=== PATIENT | male | born 1945 | race Caucasian/White ===

== ENCOUNTER 2020-05-23 10:49 | Inpatient (IN) ==
[~2020-05-23 10:49] MED LIST: ASPIRIN 325 MG TABLET PO ONE; DIAZEPAM 5 MG TABLET PO ONE; MAGNESIUM SULF RIDER 2 GM in PREMIX 1 EACH IV PRN; POTASSIUM CHLORIDE RIDER 10 MEQ in PREMIX 1 EACH IV PRN; diphenhydrAMINE CAP 25 MG CAPSULE PO ONE
[2020-05-23] MEDS ORDERED: ASPIRIN 325 MG TABLET ONE (11:48)
[2020-05-23] MEDS ORDERED: diphenhydrAMINE CAP 25 MG CAPSULE ONE (11:48)
[2020-05-23] MEDS ORDERED: DIAZEPAM 5 MG TABLET ONE (11:48)
[2020-05-23] MEDS: SODIUM CHLORIDE 0.9% 1,000 ML IV SCH (11:51)
[2020-05-23] MEDS ORDERED: HEPARIN/NACL 0.9% 2 UNITS/ML 1,000 ML IV ONE (13:44)
[2020-05-23] MEDS ORDERED: LIDOCAINE 1% 20 ML VIAL ONE (13:44)
[2020-05-23] MEDS ORDERED: DIPHENHYDRAMINE ACETAMINOPHEN PO PRN (13:56)
[2020-05-23] MEDS ORDERED: ZALEPLON 5 MG CAPSULE PO PRN (13:56)
[2020-05-23] MEDS ORDERED: MIDAZOLAM 2 MG/2 ML VIAL ONE (13:59)
[2020-05-23] MEDS ORDERED: fentaNYL 100 MCG/2 ML VIAL ONE (13:59)
[2020-05-23] MEDS ORDERED: TESTOSTERONE CYPIONATE 200 MG/ML VIAL IM SCH (14:00)
[2020-05-23] MEDS ORDERED: METOPROLOL TARTRATE 5 MG/5 ML VIAL IV ONE (14:24)
[2020-05-23] MEDS ORDERED: hydrALAZINE 20 MG/1 ML VIAL ONE (14:29)
[2020-05-23] MEDS ORDERED: MORPHINE 4 MG/1 ML VIAL IV PRN (15:17)
[2020-05-23] MEDS ORDERED: ONDANSETRON 4 MG/2 ML VIAL IV PRN (15:17)
[2020-05-23] MEDS ORDERED: ACETAMINOPHEN/CODEINE 300-30 MG TABLET PO PRN (15:17)
[2020-05-23] MEDS ORDERED: MAGNESIUM HYDROXIDE SUSP 30 ML UDCUP PO PRN (15:31)
[2020-05-23] MEDS: NITROGLYCERIN SL 0.4 MG TABLET SL PRN ×2 (16:31→16:39)
[2020-05-23] MEDS ORDERED: METOPROLOL TARTRATE 5 MG/5 ML VIAL IV PRN (16:41)
[2020-05-23] MEDS: NITROGLYCERIN 2% OINT 1 INCH/GM PACK TOP SCH ×2 (16:46→17:59)
[2020-05-23] MEDS: LOSARTAN 50 MG TABLET PO SCH (17:04)
[2020-05-23 19:00] LABS: Calcium 9.2 MG/DL (8.5-10.1); Osmolality,Calculated 274.8 MOS/KG (273-304)
[2020-05-23 19:04] LABS: Troponin I < 0.015 NG/ML (0.00-0.045)
[2020-05-23] MEDS ORDERED: ATORVASTATIN 10 MG TABLET PO SCH (21:00)
[2020-05-23] MEDS: ASPIRIN EC 81 MG TABLET PO SCH (21:40)
[2020-05-23] MEDS: CHOLECALCIFEROL 5,000 UNIT TABLET PO SCH (21:40)
[2020-05-23] MEDS: MONTELUKAST 10 MG TABLET PO SCH (21:40)
[2020-05-23] MEDS: MELATONIN 3 MG TABLET PO PRN (21:43)
[2020-05-24] MEDS: SODIUM CHLORIDE 0.9% 1,000 ML IV SCH ×2 (00:02→19:01)
[2020-05-24] MEDS: NITROGLYCERIN 2% OINT 1 INCH/GM PACK TOP SCH ×2 (05:47)
[2020-05-24 06:20] LABS: Basophils % 0.3 % (0.0-0.8); Eosinophils # 0.1 10*3/uL (0.0-0.87); Eosinophils % 1.4 % (0.00-10.9); Hemoglobin 14.8 GM/DL (14.0-18.0); Immature Granulocytes % 0.3 %; Immature Granulocytes Absolute 0.02 #; Lymphocytes # 1.8 10*3/uL (1.4-4.0); Lymphocytes % 24.4 % (21.2-54.2); Mean Corpuscular HGB Conc 32.9 GM/DL (32-36); Mean Corpuscular Volume 88.4 FL (87-102); Mean Platelet Volume 10.6 FL (9.6-12.0); Neutrophils % 62.6 % (38.7-73.9); Platelet Count 202 T/CUMM (130-400); Red Blood Count 5.09 MC/CUMM (3.8-5.5); Red Cell Distribution Width 13.5 % (9.3-17.3); White Blood Count 7.3 T/CUMM (4-12)
[2020-05-24 06:49] LABS: Calcium 8.7 MG/DL (8.5-10.1); Osmolality,Calculated 281.4 MOS/KG (273-304)
[2020-05-24 06:51] LABS: Risk Ratio 4.14; VLDL CHOLESTEROL 34.8 MG/DL
[2020-05-24] MEDS: ISOSORBIDE MONONITRATE 30 MG TABLET PO SCH (08:43)
[2020-05-24] MEDS ORDERED: DILTIAZEM CD 120 MG CAPSULE PO SCH (09:00)
[2020-05-24] MEDS ORDERED: CLOPIDOGREL 75 MG TABLET PO SCH (09:00)
[2020-05-24] MEDS ORDERED: ENOXAPARIN 40 MG/0.4 ML SYRINGE SUBCUT SCH (09:00)
[2020-05-24] MEDS ORDERED: PANTOPRAZOLE 20 MG TABLET PO SCH (09:00)
[2020-05-24] MEDS ORDERED: ENOXAPARIN 60 MG/0.6 ML SYRINGE SUBCUT ONE (09:26)
[2020-05-24] MEDS ORDERED: GLUCAGON 1 MG VIAL IM PRN (09:56)
[2020-05-24] MEDS ORDERED: DEXTROSE 50% 25 GM/50 ML VIAL IV PRN (09:56)
[2020-05-24] MEDS: ASCORBIC ACID 500 MG TABLET PO SCH ×2 (10:37→21:02)
[2020-05-24] MEDS: LOSARTAN 50 MG TABLET PO SCH (21:02)
[2020-05-24] MEDS: CHOLECALCIFEROL 5,000 UNIT TABLET PO SCH (21:02)
[2020-05-24] MEDS: diphenhydrAMINE CAP 25 MG CAPSULE PO PRN (21:02)
[2020-05-24] MEDS: ASPIRIN EC 81 MG TABLET PO SCH (21:02)
[2020-05-24] MEDS: METOPROLOL TARTRATE 25 MG TABLET PO SCH (21:02)
[2020-05-24] MEDS: ACETAMINOPHEN 325 MG TABLET PO PRN (21:02)
[2020-05-24] MEDS: MONTELUKAST 10 MG TABLET PO SCH (21:02)
[2020-05-24] MEDS: MELATONIN 3 MG TABLET PO PRN (21:03)
[2020-05-24] MEDS: ROSUVASTATIN 20 MG TABLET PO SCH (21:03)
[2020-05-24] MEDS: SELENIUM 200 MCG TABLET PO SCH (21:03)
[2020-05-24] MEDS: PANTOPRAZOLE 20 MG TABLET PO SCH (21:03)
[2020-05-24] MEDS: ENOXAPARIN 100 MG/ML SYRINGE SUBCUT SCH (21:03)
[2020-05-25 06:50] LABS: Basophils % 0.6 % (0.0-0.8); Eosinophils # 0.2 10*3/uL (0.0-0.87); Eosinophils % 2.7 % (0.00-10.9); Hematocrit 46.3 VOL% (42.0-52.0); Hemoglobin 15.4 GM/DL (14.0-18.0); Immature Granulocytes % 0.3 %; Immature Granulocytes Absolute 0.02 #; Lymphocytes # 2.2 10*3/uL (1.4-4.0); Lymphocytes % 31.3 % (21.2-54.2); Mean Corpuscular HGB Conc 33.3 GM/DL (32-36); Mean Corpuscular Volume 87.7 FL (87-102); Mean Platelet Volume 10.6 FL (9.6-12.0); Monocytes % 11.4 % (1.7-12.7); Neutrophils % 53.7 % (38.7-73.9); Platelet Count 196 T/CUMM (130-400); Red Blood Count 5.28 MC/CUMM (3.8-5.5); Red Cell Distribution Width 13.4 % (9.3-17.3)
[2020-05-25 07:09] LABS: Calcium 8.8 MG/DL (8.5-10.1); Osmolality,Calculated 279.5 MOS/KG (273-304)
[2020-05-25 07:22] LABS: Calcium 9.1 MG/DL (8.5-10.1); Osmolality,Calculated 279.5 MOS/KG (273-304)
[2020-05-25] MEDS: ISOSORBIDE MONONITRATE 30 MG TABLET PO SCH (08:59)
[2020-05-25] MEDS: ENOXAPARIN 100 MG/ML SYRINGE SUBCUT SCH ×2 (08:59→22:00)
[2020-05-25] MEDS: METOPROLOL TARTRATE 25 MG TABLET PO SCH ×2 (09:00→21:57)
[2020-05-25] MEDS: ASCORBIC ACID 500 MG TABLET PO SCH ×2 (09:00→21:59)
[2020-05-25] MEDS: PANTOPRAZOLE 20 MG TABLET PO SCH ×2 (09:00→21:58)
[2020-05-25] MEDS: ASPIRIN EC 81 MG TABLET PO SCH (21:55)
[2020-05-25] MEDS: LOSARTAN 50 MG TABLET PO SCH (21:56)
[2020-05-25] MEDS: ROSUVASTATIN 20 MG TABLET PO SCH (21:57)
[2020-05-25] MEDS: SELENIUM 200 MCG TABLET PO SCH (21:58)
[2020-05-25] MEDS: MONTELUKAST 10 MG TABLET PO SCH (21:58)
[2020-05-25] MEDS: CHOLECALCIFEROL 5,000 UNIT TABLET PO SCH (21:59)
[2020-05-25] MEDS: diphenhydrAMINE CAP 25 MG CAPSULE PO PRN (22:28)
[2020-05-25] MEDS: MELATONIN 3 MG TABLET PO PRN (22:28)
[2020-05-25] MEDS: ACETAMINOPHEN 325 MG TABLET PO PRN (22:29)
[2020-05-26 05:35] LABS: Basophils # 0.1 10*3/uL (0.0-0.2); Basophils % 0.7 % (0.0-0.8); Eosinophils # 0.2 10*3/uL (0.0-0.87); Eosinophils % 2.5 % (0.00-10.9); Hemoglobin 15.3 GM/DL (14.0-18.0); Immature Granulocytes % 0.1 %; Immature Granulocytes Absolute 0.01 #; Lymphocytes # 2.3 10*3/uL (1.4-4.0); Lymphocytes % 30.4 % (21.2-54.2); Mean Corpuscular HGB Conc 33.3 GM/DL (32-36); Mean Platelet Volume 10.3 FL (9.6-12.0); Monocytes % 10.8 % (1.7-12.7); Neutrophils % 55.5 % (38.7-73.9); Platelet Count 205 T/CUMM (130-400); Red Blood Count 5.23 MC/CUMM (3.8-5.5); Red Cell Distribution Width 13.3 % (9.3-17.3); White Blood Count 7.5 T/CUMM (4-12)
[2020-05-26 07:03] LABS: Albumin 3.2 G/DL (3.4-5.0); Bilirubin,Total 1.8 MG/DL (0.2-1.0); Calcium 9.1 MG/DL (8.5-10.1); Osmolality,Calculated 279.5 MOS/KG (273-304); Total Protein 6.7 G/DL (6.4-8.3)
[2020-05-26] MEDS: ISOSORBIDE MONONITRATE 30 MG TABLET PO SCH (08:35)
[2020-05-26] MEDS: ASCORBIC ACID 500 MG TABLET PO SCH ×2 (08:35→21:33)
[2020-05-26] MEDS: PANTOPRAZOLE 20 MG TABLET PO SCH ×2 (08:35→21:34)
[2020-05-26] MEDS: ENOXAPARIN 100 MG/ML SYRINGE SUBCUT SCH (08:35)
[2020-05-26] MEDS: METOPROLOL TARTRATE 25 MG TABLET PO SCH ×2 (08:35→21:33)
[2020-05-26] MEDS: CHLORHEXIDINE 0.12% ORAL RINSE 60 ML BOTTLE SWISH/SPIT SCH ×2 (08:35→21:35)
[2020-05-26] MEDS: CHLORHEXIDINE 4% SOLN 118 ML BOTTLE TOP SCH ×2 (10:00→15:39)
[2020-05-26 11:36] LABS: ABG Base Excess -1.3 MMOL/L (-2.5-2.5); ABG HCO3 23.3 MMOL/L (20-26); ABG Oxygen Saturation 97.3 % (95-100); ABG PCO2 35.9 MM HG (35-48); ABG PH 7.408 (7.35-7.45); ABG PO2 97.9 MM HG (80-95); ABG TCO2 18.7 MMOL/L (23-27); Allen Test Positive
[2020-05-26] MEDS: SODIUM CHLORIDE 0.9% 1,000 ML IV SCH (18:23)
[2020-05-26] MEDS: ASPIRIN EC 81 MG TABLET PO SCH (21:31)
[2020-05-26] MEDS: ROSUVASTATIN 20 MG TABLET PO SCH (21:31)
[2020-05-26] MEDS: MELATONIN 3 MG TABLET PO PRN (21:32)
[2020-05-26] MEDS: LOSARTAN 50 MG TABLET PO SCH (21:32)
[2020-05-26] MEDS: SELENIUM 200 MCG TABLET PO SCH (21:33)
[2020-05-26] MEDS: CHOLECALCIFEROL 5,000 UNIT TABLET PO SCH (21:34)
[2020-05-26] MEDS: MONTELUKAST 10 MG TABLET PO SCH (21:34)
[2020-05-27] MEDS ORDERED: CEFUROXIME INJ 1,500 MG in SYRINGE 1 EACH IV ONE (04:00)
[2020-05-27] MEDS: CHLORHEXIDINE 4% SOLN 118 ML BOTTLE TOP SCH (04:45)
[2020-05-27] MEDS ORDERED: PAPAVERINE 60 MG/2 ML VIAL ONE (05:20)
[2020-05-27] MEDS ORDERED: VANCOMYCIN 500 MG VIAL ONE (05:20)
[2020-05-27] MEDS ORDERED: VANCOMYCIN 1,000 MG VIAL ONE (05:20)
[2020-05-27 05:23] LABS: Basophils % 0.6 % (0.0-0.8); Eosinophils # 0.2 10*3/uL (0.0-0.87); Eosinophils % 2.5 % (0.00-10.9); Hematocrit 47.8 VOL% (42.0-52.0); Hemoglobin 16.3 GM/DL (14.0-18.0); Immature Granulocytes % 0.3 %; Immature Granulocytes Absolute 0.02 #; Lymphocytes % 28.1 % (21.2-54.2); Mean Corpuscular HGB Conc 34.1 GM/DL (32-36); Mean Corpuscular Volume 85.5 FL (87-102); Mean Platelet Volume 10.5 FL (9.6-12.0); Monocytes % 11.1 % (1.7-12.7); Neutrophils % 57.4 % (38.7-73.9); Platelet Count 202 T/CUMM (130-400); Red Blood Count 5.59 MC/CUMM (3.8-5.5); Red Cell Distribution Width 13.2 % (9.3-17.3); White Blood Count 7.1 T/CUMM (4-12)
[2020-05-27 05:55] LABS: Calcium 9.3 MG/DL (8.5-10.1); Osmolality,Calculated 277.7 MOS/KG (273-304)
[2020-05-27] MEDS ORDERED: SUFentanil 250 MCG/5 ML AMP ONE (06:03)
[2020-05-27] MEDS ORDERED: ePHEDrine 50 MG/ML VIAL ONE (06:03)
[2020-05-27] MEDS ORDERED: MIDAZOLAM 10 MG/2 ML VIAL ONE (06:04)
[2020-05-27] MEDS: ISOSORBIDE MONONITRATE 30 MG TABLET PO SCH ×2 (06:16→08:36)
[2020-05-27] MEDS: METOPROLOL TARTRATE 25 MG TABLET PO SCH ×2 (06:16→08:36)
[2020-05-27] MEDS: CHLORHEXIDINE 0.12% ORAL RINSE 60 ML BOTTLE SWISH/SPIT SCH ×3 (06:17→20:39)
[2020-05-27 07:37] LABS: ABG Base Excess -0.3 MMOL/L (-2.5-2.5); ABG HCO3 24.2 MMOL/L (20-26); ABG Oxygen Saturation 99.3 % (95-100); ABG PCO2 40.3 MM HG (35-48); ABG PH 7.392 (7.35-7.45); ABG TCO2 20.9 MMOL/L (23-27); Glucose Heart Surgery 132 MG/DL (74-106); Hematocrit Heart Surgery 45.6 PERCENT (42-52); Hemoglobin Heart Surgery 14.9 G/DL (14.0-18.0); Ionized Calcium Arterial 1.37 MMOL/L (1.21-1.46); PCO2 Patient Temp Arterial 40.3 MMHG; PH Patient Temp Arterial 7.392; Patient Temperature 37 CELCIUS; Sodium Heart/CVR 138 MMOL/L (135-145)
[2020-05-27] MEDS ORDERED: POTASSIUM CHLORIDE RIDER 100 ML IV ONE (07:42)
[2020-05-27] MEDS ORDERED: NITROPRUSSIDE 50 MG/2 ML VIAL ONE (07:42)
[2020-05-27] MEDS ORDERED: CALCIUM CHLORIDE 1,000 MG/10 ML SYRINGE IV ONE (07:42)
[2020-05-27] MEDS ORDERED: SODIUM BICARBONATE 50 MEQ/50 ML VIAL IV ONE ×2 (07:42→10:44)
[2020-05-27] MEDS ORDERED: PHENYLEPHRINE DRIP 40 MG/250 ML PREMIX IV ONE (07:42)
[2020-05-27] MEDS ORDERED: EPINEPHrine 1 MG/10 ML SYRINGE ONE (07:43)
[2020-05-27] MEDS ORDERED: ATROPINE 1 MG/10 ML SYRINGE ONE (07:43)
[2020-05-27] MEDS ORDERED: ALBUMIN 5% 12.5 GM/250 ML VIAL IV ONE (07:43)
[2020-05-27] MEDS: ASCORBIC ACID 500 MG TABLET PO SCH (08:36)
[2020-05-27] MEDS: PANTOPRAZOLE 20 MG TABLET PO SCH (08:36)
[2020-05-27 08:40] LABS: Apearance,Urine CLEAR (Clear); Bilirubin,Urine Negative (Negative); Blood, Urine Negative (Negative); Glucose,Urine (UA) Negative (Negative); Ketones,Urine Negative (Negative); Mucus,Urine Occasional /LPF (Occasional); Nitrite,Urine Negative (Negative); Protein,Urine 30 MG/DL; RBC,Urine 36 /HPF (0-4); Squamous Epithelial Cell,Urine Occasional /HPF (0-10); Urine Color Yellow (Yellow); Urine Specific Gravity 1.019 (1.001-1.035); Urine Urobilinogen < 2.0 EU/DL (0.2-1.0); WBC,Urine <1 /HPF (0-6)
[2020-05-27] MEDS ORDERED: CALCIUM CHLORIDE 1,000 MG/10 ML VIAL IV ONE (08:59)
[2020-05-27] MEDS ORDERED: LIDOCAINE 2% 5 ML VIAL ONE ×2 (08:59→10:44)
[2020-05-27] MEDS ORDERED: VECURONIUM 10 MG VIAL IV ONE (09:00)
[2020-05-27] MEDS ORDERED: SODIUM CHLORIDE 0.9% 1,000 ML IV ONE (09:00)
[2020-05-27] MEDS ORDERED: AMINOCAPROIC ACID 5,000 MG/20 ML VIAL ONE (09:00)
[2020-05-27] MEDS ORDERED: FAMOTIDINE 20 MG/2 ML VIAL IV ONE (09:00)
[2020-05-27] MEDS ORDERED: SODIUM CHLORIDE 0.9% 100 ML IV ONE (09:00)
[2020-05-27] MEDS ORDERED: HEPARIN/NACL 0.9% 2 UNITS/ML 500 ML IV ONE (09:00)
[2020-05-27] MEDS ORDERED: LACTATED RINGERS 1,000 ML IV ONE ×2 (09:00→16:19)
[2020-05-27] MEDS ORDERED: diphenhydrAMINE 50 MG/1 ML VIAL ONE (09:00)
[2020-05-27] MEDS ORDERED: SODIUM CHLORIDE 0.9% 250 ML IV ONE (09:00)
[2020-05-27 09:14] LABS: Hemoglobin Heart Surgery 10.4 G/DL (14.0-18.0); PCO2 Patient Temp Venous 32.4 MM HG; PH Patient Temp Venous 7.465; PO2 Patient Temp Venous 39.5 MM HG; VBG Base Excess 0.1 MEQ/L (0-4); VBG HCO3 24.3 MEQ/L (24-28); VBG Oxygen Saturation 83.9 %; VBG PCO2 37.4 MMHG (41-51); VBG PH 7.421; VBG PO2 48.6 MMHG (17-40)
[2020-05-27 09:34] LABS: Hemoglobin Heart Surgery 10.6 G/DL (14.0-18.0); PCO2 Patient Temp Venous 27.6 MM HG; PH Patient Temp Venous 7.505; PO2 Patient Temp Venous 41.3 MM HG; Potassium Heart/CVR 5.3 MMOL/L (3.5-5.1); VBG Base Excess -1.3 MEQ/L (0-4); VBG HCO3 21.9 MEQ/L (24-28); VBG Oxygen Saturation 85.9 %; VBG PCO2 31.5 MMHG (41-51); VBG PH 7.46
[2020-05-27] MEDS ORDERED: AMIODARONE 150 MG/3 ML VIAL ONE (10:20)
[2020-05-27] MEDS ORDERED: AMIODARONE INJ 450 MG in DEXTROSE 5% 241 ML IV SCH ×2 (10:30→11:30)
[2020-05-27 10:39] LABS: ABG Base Excess -2.7 MMOL/L (-2.5-2.5); ABG HCO3 20.6 MMOL/L (20-26); ABG Oxygen Saturation 98.9 % (95-100); ABG PCO2 31.3 MM HG (35-48); ABG PH 7.437 (7.35-7.45); ABG PO2 354.3 MM HG (80-95); ABG TCO2 21.6 MMOL/L (23-27); Glucose Heart Surgery 242 MG/DL (74-106); Ionized Calcium Arterial 1.13 MMOL/L (1.21-1.46); PCO2 Patient Temp Arterial 31.3 MMHG; PH Patient Temp Arterial 7.437; PO2 Patient Temp Arterial 354.3 MM HG; Patient Temperature 37 CELCIUS; Potassium Heart/CVR 4.6 MMOL/L (3.5-5.1); Sodium Heart/CVR 130 MMOL/L (135-145)
[2020-05-27] MEDS ORDERED: PROTAMINE SULFATE 250 MG/25 ML VIAL IV ONE (10:44)
[2020-05-27] MEDS ORDERED: MAGNESIUM SULFATE 5 GM/10 ML VIAL IV ONE (10:44)
[2020-05-27] MEDS ORDERED: DEXTROSE 5% KCL 20 MEQ 20 MEQ/1,000 ML BAG IV ONE (10:44)
[2020-05-27] MEDS ORDERED: ALBUMIN 25% 25 GM/100 ML VIAL IV ONE (10:44)
[2020-05-27] MEDS ORDERED: MANNITOL 100 GM/500 ML BAG IV ONE (10:44)
[2020-05-27] MEDS ORDERED: HEPARIN 10,000 UNIT/10 ML VIAL ONE (10:45)
[2020-05-27] MEDS ORDERED: PROTAMINE SULFATE 50 MG/5 ML VIAL IV ONE ×3 (10:45→11:38)
[2020-05-27] MEDS ORDERED: FUROSEMIDE 20 MG/2 ML VIAL ONE (10:45)
[2020-05-27] MEDS ORDERED: methylPREDNISolone SOD SUC 1,000 MG/8 ML VIAL ONE (10:45)
[2020-05-27] MEDS ORDERED: SEVOFLURANE 1 UNIT/15 MINUTE INH ONE (11:31)
[2020-05-27] MEDS ORDERED: INSULIN REGULAR DRIP 100 ML IV SCH (11:40)
[2020-05-27] MEDS ORDERED: SODIUM CHLORIDE 0.45% 1,000 ML IV SCH ×2 (11:40)
[2020-05-27] MEDS ORDERED: ONDANSETRON 4 MG/2 ML VIAL IV PRN (11:40)
[2020-05-27] MEDS ORDERED: CALCIUM CHLORIDE 1,000 MG/10 ML SYRINGE IV PRN (11:40)
[2020-05-27] MEDS ORDERED: MIDAZOLAM 10 MG/2 ML VIAL IV PRN (11:40)
[2020-05-27] MEDS ORDERED: INSULIN REGULAR 100 UNIT/ML IV PRN (11:40)
[2020-05-27] MEDS ORDERED: DEXTROSE 50% 25 GM/50 ML VIAL IV PRN ×2 (11:40)
[2020-05-27] MEDS ORDERED: CHLORHEXIDINE 4% SOLN 118 ML BOTTLE TOP PRN (11:40)
[2020-05-27] MEDS ORDERED: MAGNESIUM SULF RIDER 2 GM in PREMIX 1 EACH IV PRN (11:40)
[2020-05-27] MEDS ORDERED: ACETAMINOPHEN 650 MG SUPP RECTAL PRN (11:40)
[2020-05-27] MEDS ORDERED: MAGNESIUM SULF RIDER 4 GM in PREMIX 1 EACH IV PRN (11:40)
[2020-05-27] MEDS ORDERED: VECURONIUM 10 MG VIAL IV PRN ×2 (11:40)
[2020-05-27] MEDS ORDERED: MIDAZOLAM 2 MG/2 ML VIAL IV PRN (11:40)
[2020-05-27] MEDS ORDERED: NITROPRUSSIDE 100 MG in DEXTROSE 5% 250 ML IV PRN (11:40)
[2020-05-27] MEDS ORDERED: INSULIN REGULAR 100 UNIT/ML IV ONE (11:40)
[2020-05-27] MEDS ORDERED: MORPHINE 10 MG/1 ML VIAL IV PRN (11:40)
[2020-05-27] MEDS ORDERED: PHENYLEPHRINE DRIP 40 MG/250 ML PREMIX IV PRN (11:40)
[2020-05-27] MEDS: LACTATED RINGERS 250 ML IV PRN ×4 (11:45→15:00)
[2020-05-27] MEDS: ALBUMIN 5% 12.5 GM in PREMIX 1 EACH IV PRN ×4 (11:55→23:47)
[2020-05-27 11:58] LABS: ABG Base Excess 1.3 MMOL/L (-2.5-2.5); ABG HCO3 25.6 MMOL/L (20-26); ABG Oxygen Saturation 98.8 % (95-100); ABG PCO2 41.2 MM HG (35-48); ABG PH 7.409 (7.35-7.45); ABG TCO2 23.2 MMOL/L (23-27); Glucose Heart Surgery 220 MG/DL (74-106); Hematocrit Heart Surgery 35.7 PERCENT (42-52); Hemoglobin Heart Surgery 11.6 G/DL (14.0-18.0); Potassium Heart/CVR 3.7 MMOL/L (3.5-5.1)
[2020-05-27 11:59] LABS: Basophils % 0.2 % (0.0-0.8); Eosinophils # 0.1 10*3/uL (0.0-0.87); Eosinophils % 0.5 % (0.00-10.9); Hemoglobin 11.4 GM/DL (14.0-18.0); Immature Granulocytes % 0.6 %; Immature Granulocytes Absolute 0.08 #; Lymphocytes # 1.2 10*3/uL (1.4-4.0); Lymphocytes % 9.9 % (21.2-54.2); Mean Corpuscular HGB Conc 33.5 GM/DL (32-36); Mean Corpuscular Volume 87.4 FL (87-102); Mean Platelet Volume 10.7 FL (9.6-12.0); Monocytes % 4.6 % (1.7-12.7); Neutrophils % 84.2 % (38.7-73.9); Platelet Count 198 T/CUMM (130-400); Red Blood Count 3.89 MC/CUMM (3.8-5.5); Red Cell Distribution Width 13.1 % (9.3-17.3); White Blood Count 12.4 T/CUMM (4-12)
[2020-05-27 12:32] LABS: Albumin 3.2 G/DL (3.4-5.0); Bilirubin,Total 1.4 MG/DL (0.2-1.0); Calcium 9.8 MG/DL (8.5-10.1); Osmolality,Calculated 283.5 MOS/KG (273-304); Total Protein 6.2 G/DL (6.4-8.3)
[2020-05-27 12:33] LABS: INR 1.2; Partial Thromboplastin Time 26.8 SECS (23.9-33.8)
[2020-05-27] MEDS: POTASSIUM CHLORIDE RIDER 20 MEQ in PREMIX 1 EACH IV PRN ×3 (13:00→21:24)
[2020-05-27] MEDS: POTASSIUM CHLORIDE RIDER 10 MEQ in PREMIX 1 EACH IV PRN ×2 (13:33→16:46)
[2020-05-27 13:57] LABS: CKMB % 4.9 %
[2020-05-27 14:02] LABS: Troponin I 6.91 NG/ML (0.00-0.045)
[2020-05-27] MEDS: SODIUM CHLORIDE 0.9% 1,000 ML IV SCH (14:14)
[2020-05-27 15:59] LABS: ABG Base Excess 1.3 MMOL/L (-2.5-2.5); ABG HCO3 25.6 MMOL/L (20-26); ABG Oxygen Saturation 98.8 % (95-100); ABG PCO2 41.7 MM HG (35-48); ABG PH 7.405 (7.35-7.45); ABG TCO2 23.8 MMOL/L (23-27); Glucose Heart Surgery 149 MG/DL (74-106); Hematocrit Heart Surgery 30.1 PERCENT (42-52); Hemoglobin Heart Surgery 9.7 G/DL (14.0-18.0); Potassium Heart/CVR 3.8 MMOL/L (3.5-5.1)
[2020-05-27] MEDS: AMIODARONE INJ 450 MG in DEXTROSE 5% 241 ML IV SCH (17:18)
[2020-05-27 18:37] LABS: ABG Base Excess -1.7 MMOL/L (-2.5-2.5); ABG HCO3 23.6 MMOL/L (20-26); ABG Oxygen Saturation 96.1 % (95-100); ABG PCO2 41.9 MM HG (35-48); ABG PH 7.368 (7.35-7.45); ABG PO2 95.2 MM HG (80-95); ABG TCO2 24.9 MMOL/L (23-27); Glucose Heart Surgery 147 MG/DL (74-106); Hemoglobin Heart Surgery 10.8 G/DL (14.0-18.0)
[2020-05-27] MEDS ORDERED: FUROSEMIDE 40 MG/4 ML VIAL IV ONE (18:38)
[2020-05-27] MEDS: CEFUROXIME INJ 1,500 MG in SYRINGE 1 EACH IV SCH (19:14)
[2020-05-27 20:00] LABS: CKMB % 4.9 %
[2020-05-27 20:04] LABS: Troponin I 12.8 NG/ML (0.00-0.045)
[2020-05-27 20:17] LABS: Hematocrit Heart Surgery 33.1 PERCENT (42-52); Hemoglobin Heart Surgery 10.7 G/DL (14.0-18.0); PCO2 Patient Temp Venous 44.2 MM HG; PH Patient Temp Venous 7.351; PO2 Patient Temp Venous 45.9 MM HG; Potassium Heart/CVR 3.9 MMOL/L (3.5-5.1); VBG Base Excess -1.2 MEQ/L (0-4); VBG Oxygen Saturation 76.2 %; VBG PCO2 44.2 MMHG (41-51); VBG PH 7.351; VBG PO2 45.9 MMHG (17-40)
[2020-05-27 21:14] LABS: ABG Base Excess -2.3 MMOL/L (-2.5-2.5); ABG HCO3 22.4 MMOL/L (20-26); ABG Oxygen Saturation 96.3 % (95-100); ABG PCO2 38.3 MM HG (35-48); ABG PH 7.385 (7.35-7.45); ABG PO2 96.1 MM HG (80-95); ABG TCO2 23.6 MMOL/L (23-27); Glucose Heart Surgery 145 MG/DL (74-106); Potassium Heart/CVR 3.9 MMOL/L (3.5-5.1)
[2020-05-27] MEDS: MORPHINE 4 MG/1 ML VIAL IV PRN (21:35)
[2020-05-27 22:04] LABS: ABG Base Excess -2.2 MMOL/L (-2.5-2.5); ABG HCO3 22.6 MMOL/L (20-26); ABG Oxygen Saturation 96.3 % (95-100); ABG PCO2 38.9 MM HG (35-48); ABG PH 7.375 (7.35-7.45); ABG PO2 89.8 MM HG (80-95); ABG TCO2 20.5 MMOL/L (23-27); Glucose Heart Surgery 138 MG/DL (74-106); Hematocrit Heart Surgery 33.4 PERCENT (42-52); Hemoglobin Heart Surgery 10.8 G/DL (14.0-18.0); Potassium Heart/CVR 4.6 MMOL/L (3.5-5.1)
[2020-05-27 23:31] LABS: ABG Base Excess -1.8 MMOL/L (-2.5-2.5); ABG HCO3 22.8 MMOL/L (20-26); ABG Oxygen Saturation 95.8 % (95-100); ABG PCO2 39.9 MM HG (35-48); ABG PH 7.372 (7.35-7.45); ABG PO2 85.8 MM HG (80-95); Glucose Heart Surgery 118 MG/DL (74-106); Hematocrit Heart Surgery 32.8 PERCENT (42-52); Hemoglobin Heart Surgery 10.6 G/DL (14.0-18.0); Potassium Heart/CVR 4.2 MMOL/L (3.5-5.1)
[2020-05-28] MEDS ORDERED: FUROSEMIDE 40 MG/4 ML VIAL IV ONE (00:21)
[2020-05-28] MEDS: MORPHINE 4 MG/1 ML VIAL IV PRN (00:53)
[2020-05-28 03:45] LABS: ABG HCO3 24.4 MMOL/L (20-26); ABG Oxygen Saturation 95.9 % (95-100); ABG PCO2 38.2 MM HG (35-48); ABG PH 7.413 (7.35-7.45); ABG PO2 82.2 MM HG (80-95); ABG TCO2 22.2 MMOL/L (23-27); Glucose Heart Surgery 141 MG/DL (74-106); Potassium Heart/CVR 4.1 MMOL/L (3.5-5.1)
[2020-05-28] MEDS: oxyCODONE/ACETAMINOPHEN 5-325 MG TABLET PO PRN ×3 (03:48→21:40)
[2020-05-28 04:02] LABS: Basophils % 0.1 % (0.0-0.8); Hematocrit 30.6 VOL% (42.0-52.0); Hemoglobin 10.2 GM/DL (14.0-18.0); Immature Granulocytes % 0.7 %; Immature Granulocytes Absolute 0.12 #; Lymphocytes # 0.8 10*3/uL (1.4-4.0); Mean Corpuscular HGB Conc 33.3 GM/DL (32-36); Mean Corpuscular Volume 88.4 FL (87-102); Mean Platelet Volume 11.3 FL (9.6-12.0); Monocytes % 7.5 % (1.7-12.7); Neutrophils % 86.7 % (38.7-73.9); Platelet Count 198 T/CUMM (130-400); Red Blood Count 3.46 MC/CUMM (3.8-5.5); Red Cell Distribution Width 13.3 % (9.3-17.3); White Blood Count 16.1 T/CUMM (4-12)
[2020-05-28 04:14] LABS: Albumin 4.1 G/DL (3.4-5.0); Bilirubin,Direct 0.35 MG/DL (0.0-0.20); Bilirubin,Total 1.1 MG/DL (0.2-1.0); Calcium 8.7 MG/DL (8.5-10.1); Osmolality,Calculated 284.4 MOS/KG (273-304); Total Protein 6.6 G/DL (6.4-8.3)
[2020-05-28 04:28] LABS: CKMB % 6.4 %
[2020-05-28 05:12] LABS: Troponin I 17.5 NG/ML (0.00-0.045)
[2020-05-28] MEDS: CEFUROXIME INJ 1,500 MG in SYRINGE 1 EACH IV SCH ×2 (07:05→21:42)
[2020-05-28] MEDS: CHLORHEXIDINE 0.12% ORAL RINSE 60 ML BOTTLE SWISH/SPIT SCH ×2 (08:00→21:39)
[2020-05-28] MEDS ORDERED: ASPIRIN EC 81 MG TABLET PO SCH (09:00)
[2020-05-28] MEDS ORDERED: MAGNESIUM HYDROXIDE SUSP 30 ML UDCUP PO PRN (10:11)
[2020-05-28] MEDS ORDERED: GLUCAGON 1 MG VIAL IM PRN (10:11)
[2020-05-28] MEDS ORDERED: ACETAMINOPHEN 325 MG TABLET PO PRN (10:11)
[2020-05-28] MEDS ORDERED: MAGNESIUM SULF RIDER 4 GM in PREMIX 1 EACH IV PRN (10:11)
[2020-05-28] MEDS ORDERED: DEXTROSE 50% 25 GM/50 ML VIAL IV PRN (10:11)
[2020-05-28] MEDS ORDERED: POTASSIUM CHLORIDE 20 MEQ TABLET PO PRN (10:11)
[2020-05-28] MEDS ORDERED: ALUMINUM/MAGNES/SIMETH MAX STR 30 ML UDCUP PO PRN (10:11)
[2020-05-28] MEDS ORDERED: MAGNESIUM SULF RIDER 2 GM in PREMIX 1 EACH IV PRN (10:11)
[2020-05-28] MEDS ORDERED: ONDANSETRON 4 MG/2 ML VIAL IV PRN (10:11)
[2020-05-28] MEDS ORDERED: SODIUM CHLOR 0.45% KCL 20 MEQ 20 MEQ/1,000 ML BAG IV SCH (10:11)
[2020-05-28] MEDS: INSULIN REGULAR 100 UNIT/ML SUBCUT SCH ×4 (10:27→21:44)
[2020-05-28] MEDS: ASCORBIC ACID 500 MG TABLET PO SCH ×2 (10:31→21:40)
[2020-05-28] MEDS: ASPIRIN EC 325 MG TABLET PO SCH (10:32)
[2020-05-28] MEDS: AMIODARONE 200 MG TABLET PO SCH ×2 (10:32→21:40)
[2020-05-28] MEDS: AMIODARONE INJ 450 MG in DEXTROSE 5% 241 ML IV SCH (10:33)
[2020-05-28] MEDS: KETOROLAC 15 MG/1 ML VIAL IV PRN (11:34)
[2020-05-28 14:00] LABS: CKMB % 4.7 %
[2020-05-28 14:01] LABS: Troponin I 15.3 NG/ML (0.00-0.045)
[2020-05-28] MEDS: ROSUVASTATIN 20 MG TABLET PO SCH (21:40)
[2020-05-28] MEDS: ZALEPLON 5 MG CAPSULE PO PRN (21:40)
[2020-05-28] MEDS ORDERED: CEFUROXIME INJ 1,500 MG in SYRINGE 1 EACH IV SCH (22:00)
[2020-05-29] MEDS: INSULIN REGULAR 100 UNIT/ML SUBCUT SCH ×6 (00:33→21:59)
[2020-05-29 05:36] LABS: Basophils % 0.1 % (0.0-0.8); Hematocrit 28.8 VOL% (42.0-52.0); Hemoglobin 9.5 GM/DL (14.0-18.0); Immature Granulocytes % 0.7 %; Immature Granulocytes Absolute 0.11 #; Lymphocytes # 1.2 10*3/uL (1.4-4.0); Lymphocytes % 7.9 % (21.2-54.2); Mean Corpuscular Volume 90.3 FL (87-102); Mean Platelet Volume 11.8 FL (9.6-12.0); Neutrophils % 81.3 % (38.7-73.9); Platelet Count 168 T/CUMM (130-400); Red Blood Count 3.19 MC/CUMM (3.8-5.5); Red Cell Distribution Width 13.5 % (9.3-17.3); White Blood Count 15.5 T/CUMM (4-12)
[2020-05-29] MEDS ORDERED: FUROSEMIDE 40 MG/4 ML VIAL IV ONE (06:00)
[2020-05-29 06:24] LABS: Albumin 3.4 G/DL (3.4-5.0); Bilirubin,Direct 0.25 MG/DL (0.0-0.20); Bilirubin,Indirect 0.9 MG/DL (0.0-1.0); Bilirubin,Total 1.1 MG/DL (0.2-1.0); Calcium 8.4 MG/DL (8.5-10.1); Osmolality,Calculated 288.7 MOS/KG (273-304); Total Protein 6.3 G/DL (6.4-8.3)
[2020-05-29 06:25] LABS: Troponin I 12.5 NG/ML (0.00-0.045)
[2020-05-29 06:34] LABS: CKMB % 1.5 %
[2020-05-29] MEDS: KETOROLAC 15 MG/1 ML VIAL IV PRN (08:06)
[2020-05-29] MEDS: PANTOPRAZOLE 40 MG TABLET PO SCH (09:04)
[2020-05-29] MEDS: FERROUS SULFATE 325 MG TABLET PO SCH (09:04)
[2020-05-29] MEDS: AMIODARONE 200 MG TABLET PO SCH ×2 (09:04→22:02)
[2020-05-29] MEDS: DOCUSATE SODIUM 100 MG CAPSULE PO SCH (09:04)
[2020-05-29] MEDS: ASCORBIC ACID 500 MG TABLET PO SCH ×2 (09:04→22:01)
[2020-05-29] MEDS: ASPIRIN EC 325 MG TABLET PO SCH (09:05)
[2020-05-29] MEDS: CHLORHEXIDINE 0.12% ORAL RINSE 60 ML BOTTLE SWISH/SPIT SCH ×2 (09:10→22:05)
[2020-05-29] MEDS: ALBUTEROL/IPRATROPIUM 3 ML NEB RESP TX SCH ×3 (09:45→19:26)
[2020-05-29] MEDS: oxyCODONE/ACETAMINOPHEN 5-325 MG TABLET PO PRN ×2 (13:31→22:02)
[2020-05-29] MEDS: ROSUVASTATIN 20 MG TABLET PO SCH (22:01)
[2020-05-29] MEDS: METOPROLOL TARTRATE 25 MG TABLET PO SCH (22:02)
[2020-05-29] MEDS: ZALEPLON 5 MG CAPSULE PO PRN (22:03)
[2020-05-30] MEDS: ALBUTEROL/IPRATROPIUM 3 ML NEB RESP TX SCH ×4 (00:57→19:03)
[2020-05-30] MEDS: INSULIN REGULAR 100 UNIT/ML SUBCUT SCH ×6 (01:06→21:18)
[2020-05-30 05:28] LABS: Basophils % 0.2 % (0.0-0.8); Hematocrit 27.3 VOL% (42.0-52.0); Hemoglobin 8.8 GM/DL (14.0-18.0); Immature Granulocytes % 0.5 %; Immature Granulocytes Absolute 0.06 #; Lymphocytes # 1.2 10*3/uL (1.4-4.0); Lymphocytes % 11.3 % (21.2-54.2); Mean Corpuscular HGB Conc 32.2 GM/DL (32-36); Mean Corpuscular Volume 91.9 FL (87-102); Mean Platelet Volume 10.9 FL (9.6-12.0); Monocytes % 10.5 % (1.7-12.7); Neutrophils % 77.5 % (38.7-73.9); Platelet Count 165 T/CUMM (130-400); Red Blood Count 2.97 MC/CUMM (3.8-5.5); Red Cell Distribution Width 13.5 % (9.3-17.3); White Blood Count 10.9 T/CUMM (4-12)
[2020-05-30 06:07] LABS: Albumin 3.1 G/DL (3.4-5.0); Bilirubin,Direct 0.26 MG/DL (0.0-0.20); Bilirubin,Indirect 1.5 MG/DL (0.0-1.0); Bilirubin,Total 1.8 MG/DL (0.2-1.0); CKMB % 0.6 %; Calcium 8.1 MG/DL (8.5-10.1); Osmolality,Calculated 286.5 MOS/KG (273-304); Total Protein 5.7 G/DL (6.4-8.3)
[2020-05-30 06:09] LABS: Troponin I 9.44 NG/ML (0.00-0.045)
[2020-05-30] MEDS: DOCUSATE SODIUM 100 MG CAPSULE PO SCH (08:42)
[2020-05-30] MEDS: oxyCODONE/ACETAMINOPHEN 5-325 MG TABLET PO PRN ×2 (08:43→21:15)
[2020-05-30] MEDS: PANTOPRAZOLE 40 MG TABLET PO SCH (08:43)
[2020-05-30] MEDS: FERROUS SULFATE 325 MG TABLET PO SCH (08:43)
[2020-05-30] MEDS: ASPIRIN EC 325 MG TABLET PO SCH (08:43)
[2020-05-30] MEDS: CHLORHEXIDINE 0.12% ORAL RINSE 60 ML BOTTLE SWISH/SPIT SCH ×2 (08:43→21:18)
[2020-05-30] MEDS: AMIODARONE 200 MG TABLET PO SCH ×2 (08:43→21:15)
[2020-05-30] MEDS: ASCORBIC ACID 500 MG TABLET PO SCH ×2 (08:43→21:15)
[2020-05-30] MEDS: METOPROLOL TARTRATE 25 MG TABLET PO SCH ×2 (08:43→21:15)
[2020-05-30] MEDS: ZALEPLON 5 MG CAPSULE PO PRN (21:14)
[2020-05-30] MEDS: ROSUVASTATIN 20 MG TABLET PO SCH (21:15)
[2020-05-31] MEDS: ALBUTEROL/IPRATROPIUM 3 ML NEB RESP TX SCH ×4 (00:49→19:07)
[2020-05-31 07:14] LABS: Basophils % 0.3 % (0.0-0.8); Eosinophils # 0.1 10*3/uL (0.0-0.87); Eosinophils % 0.9 % (0.00-10.9); Hemoglobin 9.3 GM/DL (14.0-18.0); Immature Granulocytes % 0.6 %; Immature Granulocytes Absolute 0.06 #; Lymphocytes # 1.6 10*3/uL (1.4-4.0); Lymphocytes % 16.5 % (21.2-54.2); Mean Corpuscular HGB Conc 32.1 GM/DL (32-36); Mean Corpuscular Volume 91.5 FL (87-102); Mean Platelet Volume 11.3 FL (9.6-12.0); Monocytes % 10.9 % (1.7-12.7); Neutrophils % 70.8 % (38.7-73.9); Platelet Count 217 T/CUMM (130-400); Red Blood Count 3.17 MC/CUMM (3.8-5.5); Red Cell Distribution Width 13.2 % (9.3-17.3); White Blood Count 9.4 T/CUMM (4-12)
[2020-05-31] MEDS: oxyCODONE/ACETAMINOPHEN 5-325 MG TABLET PO PRN ×2 (07:49→21:12)
[2020-05-31 07:50] LABS: Calcium 8.4 MG/DL (8.5-10.1); Osmolality,Calculated 280.7 MOS/KG (273-304)
[2020-05-31] MEDS ORDERED: POTASSIUM CHLORIDE 20 MEQ TABLET PO ONE (08:04)
[2020-05-31] MEDS: ASPIRIN EC 325 MG TABLET PO SCH (08:51)
[2020-05-31] MEDS: DOCUSATE SODIUM 100 MG CAPSULE PO SCH (08:51)
[2020-05-31] MEDS: PANTOPRAZOLE 40 MG TABLET PO SCH (08:52)
[2020-05-31] MEDS: CHLORHEXIDINE 0.12% ORAL RINSE 60 ML BOTTLE SWISH/SPIT SCH ×2 (08:52→21:13)
[2020-05-31] MEDS: METOPROLOL TARTRATE 25 MG TABLET PO SCH ×2 (08:52→21:12)
[2020-05-31] MEDS: ASCORBIC ACID 500 MG TABLET PO SCH ×2 (08:52→21:11)
[2020-05-31] MEDS: FERROUS SULFATE 325 MG TABLET PO SCH (08:52)
[2020-05-31] MEDS: AMIODARONE 200 MG TABLET PO SCH ×2 (08:52→21:12)
[2020-05-31] MEDS: ROSUVASTATIN 20 MG TABLET PO SCH (21:12)
[2020-05-31] MEDS: ZALEPLON 5 MG CAPSULE PO PRN (21:12)
[2020-06-01] MEDS: ALBUTEROL/IPRATROPIUM 3 ML NEB RESP TX SCH ×2 (01:35→07:32)
[2020-06-01 05:54] LABS: Basophils % 0.3 % (0.0-0.8); Eosinophils # 0.2 10*3/uL (0.0-0.87); Eosinophils % 2.4 % (0.00-10.9); Hematocrit 27.8 VOL% (42.0-52.0); Immature Granulocytes % 0.7 %; Immature Granulocytes Absolute 0.06 #; Lymphocytes # 1.9 10*3/uL (1.4-4.0); Mean Corpuscular HGB Conc 32.4 GM/DL (32-36); Mean Platelet Volume 10.7 FL (9.6-12.0); Monocytes % 10.9 % (1.7-12.7); Neutrophils % 64.7 % (38.7-73.9); Platelet Count 228 T/CUMM (130-400); Red Blood Count 3.09 MC/CUMM (3.8-5.5); Red Cell Distribution Width 13.2 % (9.3-17.3); White Blood Count 8.9 T/CUMM (4-12)
[2020-06-01 06:15] LABS: Calcium 7.9 MG/DL (8.5-10.1); Osmolality,Calculated 280.5 MOS/KG (273-304)
[2020-06-01 06:20] LABS: Alanine Aminotransferase 97 U/L (16-61); Albumin 2.7 G/DL (3.4-5.0); Alkaline Phosphatase 75 U/L (45-117); Aspartate Amino Transferase 64 U/L (0-37); Bilirubin,Indirect 0.7 MG/DL (0.0-1.0); Blood Urea Nitrogen 20 MG/DL (7-18); Calcium 8.3 MG/DL (8.5-10.1); Estimated Glom Filtration Rate 105 ML/MIN; Glucose 121 MG/DL (74-106); Osmolality,Calculated 282.4 MOS/KG (273-304)
[2020-06-01 08:19] VITALS: BP 125/90
[2020-06-01] MEDS: METOPROLOL TARTRATE 25 MG TABLET PO SCH (09:14)
[2020-06-01] MEDS: ASPIRIN EC 325 MG TABLET PO SCH (09:15)
[2020-06-01] MEDS: AMIODARONE 200 MG TABLET PO SCH (09:15)
[2020-06-01] MEDS: oxyCODONE/ACETAMINOPHEN 5-325 MG TABLET PO PRN (09:15)
[2020-06-01] MEDS: DOCUSATE SODIUM 100 MG CAPSULE PO SCH (09:15)
[2020-06-01] MEDS: ASCORBIC ACID 500 MG TABLET PO SCH (09:15)
[2020-06-01] MEDS: CHLORHEXIDINE 0.12% ORAL RINSE 60 ML BOTTLE SWISH/SPIT SCH (09:16)
[2020-06-01] MEDS: FERROUS SULFATE 325 MG TABLET PO SCH (09:16)
[2020-06-01] MEDS: PANTOPRAZOLE 40 MG TABLET PO SCH (09:20)
== END 2020-06-01 11:19 | disposition home or self-care (01) | DRG 234 ==
LOC: N.CL 10:49 → N.TELEN 15:09 → N.CVR 05-27 11:04 → N.TELES 05-28 12:27
PROVIDERS: ADMIT Internal Medicine Cardiovascular Disease; ATTEND Internal Medicine Cardiovascular Disease